=== PATIENT | male | born 1985 | race Two or more races ===

== ENCOUNTER 2023-01-14 14:13 | Inpatient (IN) | payer OTHER ==
[2023-01-14 14:42] VITALS: BMI 29.5
[2023-01-14] MEDS ORDERED: LOPERAMIDE HCL 2 MG CAPSULE PO PRN (19:51)
[2023-01-14] MEDS ORDERED: MAGNESIUM HYDROX 2400MG/30ML ORAL SUSPENSION 30 ML CUP PO PRN (19:51)
[2023-01-14] MEDS ORDERED: MAG HYDROX/AL HYDROX/SIMETH 30 ML UNIT-DOSE CUP PO PRN (19:51)
[2023-01-14] MEDS ORDERED: ACETAMINOPHEN 325 MG TABLET (FP) PO PRN (19:51)
[2023-01-14] MEDS ORDERED: BENZOCAINE/MENTHOL (CHLORASEPTIC ) LOZENGE MM PRN (19:51)
[2023-01-14] MEDS ORDERED: IBUPROFEN 600 MG TABLET (FP) PO PRN (19:51)
[2023-01-14] MEDS ORDERED: IBUPROFEN 400 MG TABLET (FP) PO PRN (19:51)
[2023-01-14] MEDS ORDERED: BENZONATATE 200 MG CAPSULE PO PRN (19:51)
[2023-01-14] MEDS ORDERED: COLLOIDAL OATMEAL 1 BAR EACH TP PRN (19:51)
[2023-01-14] MEDS ORDERED: AMMONIUM LACTATE 12% LOTION 225 GM BOTTLE TP PRN (19:51)
[2023-01-14] MEDS ORDERED: guaiFENesin 600 MG TABLET.ER (FP) PO PRN (19:51)
[2023-01-14] MEDS ORDERED: NICOTINE POLACRILEX 2 MG GUM BUC PRN (19:51)
[2023-01-14] MEDS ORDERED: P-EPHED 60MG/TRIPROLIDI 2.5MG TABLET PO PRN (19:51)
[2023-01-14] MEDS ORDERED: hydrOXYzine PAMOATE 25 MG CAPSULE (FP) PO PRN (19:51)
[2023-01-14] MEDS ORDERED: POLYETHYLENE GLYCOL (HEALTHYLAX) 3350 17 GM PACKET PO PRN (19:51)
[2023-01-14] MEDS ORDERED: LISINOPRIL 5 MG TABLET PO ONE (19:55)
[2023-01-15] MEDS: MELATONIN 5 MG TABLETS PO SCH ×2 (00:28→21:22)
[2023-01-15] MEDS: THIAMINE HCL 100 MG TABLET (FP) PO SCH ×2 (00:28→21:22)
[2023-01-15] MEDS: PRENATAL VITAMINS W/ FOLIC ACID TABLET (FP) PO SCH (09:15)
[2023-01-15] MEDS ORDERED: TUBERCULIN PPD 5 TU/0.1ML SYRINGE (IN PATIENT USE ONLY) ID ONE (10:00)
[2023-01-15] MEDS ORDERED: PATIENT'S OWN MEDICATION (NON-FORMULARY) (Omeprazole [Omeprazole] 20 MG Tab.Rap.Dr) PO SCH (10:15)
[2023-01-15] MEDS ORDERED: LITHIUM CARBONATE 150 MG CAPSULE PO SCH (10:30)
[2023-01-15] MEDS ORDERED: LITHIUM CARBONATE 300 MG CAPSULE PO SCH (11:31)
[2023-01-15 12:00] LABS: POTASSIUM 4.1 mmol/L (3.5-5.1)
[2023-01-15 12:02] LABS: BLOOD UREA NITROGEN 6.6 mg/dL (7-18); CALCIUM 8.6 mg/dL (8.5-10.1)
[2023-01-15 12:03] LABS: HEMOGLOBIN 13.7 GM/dL (11.7-16.9); MCH 29.9 pg (25.7-33.7); MCHC 34.3 g/dl (32.0-35.9); MEAN CELL VOLUME 87.2 fl (80-96); MEAN PLT VOLUME 7.8 fl (7.5-11.1); PLATELET COUNT 375 10^3/uL (134-434); RBC 4.59 M/mm3 (4.00-5.60); RDW 13.5 % (11.9-15.9); WHITE BLOOD COUNT 6.4 K/mm3 (4.0-10.0)
[2023-01-15 12:06] LABS: BILIRUBIN,TOTAL 0.2 mg/dL (0.2-1); TOT PROT 6.9 g/dl (6.4-8.2)
[2023-01-15] MEDS: LISINOPRIL 10 MG TABLET PO SCH (12:13)
[2023-01-15] MEDS: PANTOPRAZOLE 40 MG TABLET PO SCH (12:13)
[2023-01-15] MEDS: LITHIUM CARBONATE 300 MG CAPSULE PO SCH ×2 (12:13→21:22)
[2023-01-15 12:37] LABS: SYPHILIS W/ RPR CONF NON-REACTIVE (NONREACTIVE)
[2023-01-15] MEDS: QUEtiapine FUMARATE 50 MG TABLET PO SCH (21:23)
[2023-01-16] MEDS: PRENATAL VITAMINS W/ FOLIC ACID TABLET (FP) PO SCH (10:08)
[2023-01-16] MEDS: LISINOPRIL 10 MG TABLET PO SCH (10:08)
[2023-01-16] MEDS: PANTOPRAZOLE 40 MG TABLET PO SCH (10:08)
[2023-01-16] MEDS ORDERED: PNEUMOC 20-VAL CONJ-DIP CRM/PF 0.5 ML SYRINGE IM ONE (12:00)
[2023-01-16] MEDS: LITHIUM CARBONATE 300 MG CAPSULE PO SCH ×2 (14:27→21:27)
[2023-01-16] MEDS: QUEtiapine FUMARATE 50 MG TABLET PO SCH (21:27)
[2023-01-16] MEDS: MELATONIN 5 MG TABLETS PO SCH (21:27)
[2023-01-16] MEDS: THIAMINE HCL 100 MG TABLET (FP) PO SCH (21:27)
[2023-01-17] MEDS: LITHIUM CARBONATE 300 MG CAPSULE PO SCH ×2 (10:27→21:13)
[2023-01-17] MEDS: LISINOPRIL 10 MG TABLET PO SCH (10:27)
[2023-01-17] MEDS: PANTOPRAZOLE 40 MG TABLET PO SCH (10:27)
[2023-01-17] MEDS: PRENATAL VITAMINS W/ FOLIC ACID TABLET (FP) PO SCH (10:45)
[2023-01-17] MEDS: MELATONIN 5 MG TABLETS PO SCH (21:12)
[2023-01-17] MEDS: THIAMINE HCL 100 MG TABLET (FP) PO SCH (21:12)
[2023-01-17] MEDS: QUEtiapine FUMARATE 50 MG TABLET PO SCH (21:13)
[2023-01-18] MEDS: LITHIUM CARBONATE 300 MG CAPSULE PO SCH ×2 (09:57→21:23)
[2023-01-18] MEDS: PRENATAL VITAMINS W/ FOLIC ACID TABLET (FP) PO SCH (09:58)
[2023-01-18] MEDS: LISINOPRIL 10 MG TABLET PO SCH (09:58)
[2023-01-18] MEDS: PANTOPRAZOLE 40 MG TABLET PO SCH (09:58)
[2023-01-18] MEDS: QUEtiapine FUMARATE 50 MG TABLET PO SCH (21:23)
[2023-01-18] MEDS: THIAMINE HCL 100 MG TABLET (FP) PO SCH (21:23)
[2023-01-18] MEDS: MELATONIN 5 MG TABLETS PO SCH (21:23)
[2023-01-19 07:30] VITALS: RESP 18; TEMP 96.6
[2023-01-19 09:02] VITALS: BP 134/94; PULSE 82
[2023-01-19] MEDS: PANTOPRAZOLE 40 MG TABLET PO SCH (10:09)
[2023-01-19] MEDS: PRENATAL VITAMINS W/ FOLIC ACID TABLET (FP) PO SCH (10:09)
[2023-01-19] MEDS: LITHIUM CARBONATE 300 MG CAPSULE PO SCH (10:09)
[2023-01-19] MEDS: LISINOPRIL 10 MG TABLET PO SCH (10:10)
[2023-01-19] MEDS ORDERED: BENZTROPINE MESYLATE 1 MG TABLET PO SCH (11:30)
[2023-01-19 11:49] LABS: EPI CELLS 6 /uL (0-25.1); HYALINE CASTS 0 /uL (0-3.1); URINE APPEARANCE CLEAR; URINE BACTERIA 34 /uL (0-1359); URINE BILIRUBIN NEGATIVE (NEGATIVE); URINE COLOR YELLOW; URINE GLUCOSE (UA) NEGATIVE (NEGATIVE); URINE KETONE NEGATIVE (NEGATIVE); URINE LEUK ESTERASE 1+ (NEGATIVE); URINE NITRITE NEGATIVE (NEGATIVE); URINE PROTEIN NEGATIVE (NEGATIVE); URINE RBC 0 /uL (0-23.9); URINE UROBILINOGEN 0.2 mg/dL (0.2-1.0); URINE WBC 98 /uL (0-25.8)
== END 2023-01-19 13:44 | DRG 895 ==
LOC: YASAS 14:13 → Y3E 23:20
PROVIDERS: ADMIT Allergy & Immunology; ATTEND Psychiatry & Neurology Pain Medicine
PROC: HZ42ZZZ Group Counseling for Substance Abuse Treatment, Cognitive-Behavioral (ICD-10-PCS; principal; 2023-01-14)
DX: F13.20 Sedative, hypnotic or anxiolytic dependence, uncomplicated (principal); F14.20 Cocaine dependence, uncomplicated; F16.20 Hallucinogen dependence, uncomplicated; F12.20 Cannabis dependence, uncomplicated; F17.210 Nicotine dependence, cigarettes, uncomplicated; F20.9 Schizophrenia, unspecified; I10 Essential (primary) hypertension; K21.9 Gastro-esophageal reflux disease without esophagitis
CPT/HCPCS: 36415; 71045-TC-FY; 80053; 80178; 81003; 82962; 85027; 86780; 86803; 87635; 90677